=== PATIENT | female | born 1995 | race Caucasian/White ===

== ENCOUNTER 2018-04-29 08:30 | Emergency (ER) | payer OTHER ==
[~2018-04-29] VITALS: Ht 157.4 cm; Wt 58.1 kg
[2018-04-29] MEDS ORDERED: DIFLUCAN150 MG PO (09:18)
[2018-04-29] MEDS ORDERED: AMOXICILLIN500 M2 PO (09:18)
== END 2018-04-29 09:22 | disposition home or self-care (01) ==
LOC: ED 08:30
DX: R59.0 Localized enlarged lymph nodes (principal)

== ENCOUNTER 2018-05-04 13:45 | Emergency (ER) | payer OTHER ==
[~2018-05-04] VITALS: Ht 157.4 cm; Wt 54.4 kg
[~2018-05-04 13:45] MED LIST: AMOXICILLIN500 M2 PO; DIFLUCAN150 MG PO
[2018-05-04 14:29] LABS: BASO # 0.1 10*3/uL (0.0-0.1); BASO % 0.7 % (0.0-1.0); EOS # 0.2 10*3/uL (0.0-0.4); EOS % 2.1 % (1.0-4.0); HEMATOCRIT 30.8 % (37.0-47.0); HEMOGLOBIN 9.6 g/dl (12.0-16.0); LYMPH # 3.1 10*3/uL (1.3-4.4); LYMPH % 42.6 % (27.0-41.0); MEAN CELL VOLUME 72.8 fl (81.0-99.0); MEAN CORPUSCULAR HGB 22.7 pg (27.0-31.0); MEAN CORPUSCULAR HGB CONC 31.2 g/dl (33.0-37.0); MEAN PLATELET VOLUME 10.9 fl (9.6-12.3); MONO # 0.4 10*3/uL (0.1-1.0); MONO % 6.1 % (3.0-9.0); NEUT # 3.5 10*3/uL (2.3-7.9); NEUT % 48.2 % (47.0-73.0); PLATELET COUNT AUTOMATED 380 10*3/uL (130-400); RED BLOOD COUNT 4.23 10*6/uL (4.10-5.10); RED CELL DISTRI WIDTH 16.2 % (0-14.5); WHITE BLOOD COUNT 7.3 10*3/uL (4.8-10.8)
[2018-05-04 14:48] LABS: ALBUMIN 3.7 gm/dl (3.1-4.5); ALKALINE PHOSPHATASE 95 U/L (45-117); BUN 7 mg/dl (7-24); CHLORIDE 103 mmol/L (98-107); POTASSIUM 3.6 mmol/L (3.5-5.1); SGOT/AST 16 IU/L (3-35); SGPT/ALT 21 U/L (12-78); SODIUM 137 mmol/L (136-145)
[2018-05-04] MEDS ORDERED: VISTARIL25 MG PO (16:49)
[2018-05-04] MEDS ORDERED: IRON325 M1 PO (16:49)
== END 2018-05-04 17:02 | disposition home or self-care (01) ==
LOC: ED 13:45
PROVIDERS: Emergency Medicine
DX: D64.9 Anemia, unspecified (principal); F41.9 Anxiety disorder, unspecified; R06.02 Shortness of breath; R06.00 Dyspnea, unspecified; R53.83 Other fatigue

== ENCOUNTER 2018-06-05 08:59 | Emergency (ER) | payer OTHER ==
[~2018-06-05] VITALS: Ht 152.4 cm; Wt 58.1 kg
[~2018-06-05 08:59] MED LIST changes: +IRON325 M1 PO; +VISTARIL25 MG PO
[2018-06-05 09:44] LABS: BILIRUBIN NEGATIVE (NEGATIVE); BLOOD NEGATIVE (NEGATIVE); CLARITY CLEAR (CLEAR); COLOR YELLOW (YELLOW); GLUCOSE NEGATIVE (NEGATIVE); KETONE NEGATIVE (NEGATIVE); LEUKO ESTERASE NEGATIVE (NEGATIVE); NITRITE NEGATIVE (NEGATIVE); UROBILINOGEN 0.2 E.U./dl (0.2-1.0)
[2018-06-05 09:53] LABS: BACTERIA 1+; MUCOUS 2+
== END 2018-06-05 10:00 | disposition home or self-care (01) ==
LOC: ED 08:59
PROVIDERS: Nurse Practitioner
DX: Z32.02 Encounter for pregnancy test, result negative (principal); N94.10 Unspecified dyspareunia

== ENCOUNTER 2018-06-08 06:06 | Emergency (ER) | payer OTHER ==
[~2018-06-08] VITALS: Ht 152.4 cm; Wt 58.1 kg
[2018-06-08 06:48] LABS: BASO # 0.1 10*3/uL (0.0-0.1); BASO % 0.7 % (0.0-1.0); EOS # 0.1 10*3/uL (0.0-0.4); HEMATOCRIT 32.5 % (37.0-47.0); HEMOGLOBIN 10.4 g/dl (12.0-16.0); LYMPH # 2.8 10*3/uL (1.3-4.4); LYMPH % 39.1 % (27.0-41.0); MEAN CELL VOLUME 76.7 fl (81.0-99.0); MEAN CORPUSCULAR HGB 24.5 pg (27.0-31.0); MEAN PLATELET VOLUME 10.3 fl (9.6-12.3); MONO # 0.5 10*3/uL (0.1-1.0); MONO % 6.8 % (3.0-9.0); NEUT # 3.7 10*3/uL (2.3-7.9); NEUT % 51.3 % (47.0-73.0); PLATELET COUNT AUTOMATED 350 10*3/uL (130-400); RED BLOOD COUNT 4.24 10*6/uL (4.10-5.10); RED CELL DISTRI WIDTH 19.1 % (0-14.5); WHITE BLOOD COUNT 7.2 10*3/uL (4.8-10.8)
[2018-06-08 06:59] LABS: BUN 9 mg/dl (7-24); CHLORIDE 108 mmol/L (98-107); CREATININE 0.73 mg/dL (0.55-1.02); POTASSIUM 3.7 mmol/L (3.5-5.1); SODIUM 140 mmol/L (136-145)
[2018-06-08 07:05] LABS: BETA-HCG, QUANT < 1.0 mIU/mL (1-3)
[2018-06-08] MEDS ORDERED: BEYAZ 28 TABLE1 EACH PO (08:09)
== END 2018-06-08 08:16 | disposition home or self-care (01) ==
LOC: ED 06:06
PROVIDERS: Emergency Medicine Emergency Medical Services
DX: N92.0 Excessive and frequent menstruation with regular cycle (principal)

== ENCOUNTER 2024-09-07 23:11 | Emergency (ER) | payer OTHER ==
[~2024-09-07] VITALS: Ht 162.5 cm; Wt 72.6 kg
[~2024-09-07 23:11] MED LIST changes: +BEYAZ 28 TABLE1 EACH PO
[2024-09-08] MEDS ORDERED: AVPAK AZITHROM250 MG PO (00:33)
[2024-09-08] MEDS ORDERED: Dexamethasone Sodium Phospha 20 MG/5 ML VIAL IM ONE (00:40)
== END 2024-09-08 00:35 | disposition home or self-care (01) ==
LOC: ED 23:11
DX: J40 Bronchitis, not specified as acute or chronic (principal); Z20.822 Contact with and (suspected) exposure to COVID-19

== ENCOUNTER 2024-10-05 13:04 | Emergency (ER) | payer OTHER ==
[~2024-10-05] VITALS: Ht 162.5 cm; Wt 72.6 kg
[~2024-10-05 13:04] MED LIST changes: +AVPAK AZITHROM250 MG PO
[2024-10-05] MEDS ORDERED: ESCITALOPRAM OX20 MG PO (13:15)
[2024-10-05] MEDS ORDERED: OMEPRAZOLE MAGN20 MG PO (13:15)
[2024-10-05] MEDS ORDERED: JUNEL FE 1 MG-1 EACH PO (13:15)
[2024-10-05] MEDS ORDERED: MIRTAZAPINE15 M2 PO (13:15)
[2024-10-05] MEDS ORDERED: FEROSUL325 M1 PO (13:15)
[2024-10-05] MEDS ORDERED: IBUPROFEN 800 MG TAB PO ONE (13:25)
[2024-10-05 13:28] LABS: BILIRUBIN Negative (Negative); BLOOD 3+ (Negative); CLARITY Clear (Clear); COLOR Yellow (Yellow); GLUCOSE Negative (Negative); KETONE Trace (Negative); LEUKO ESTERASE Trace (Negative); NITRITE Negative (Negative); PH 5.5 (4.5-8.0); SPECIFIC GRAVITY >= 1.030 (1.001-1.030)
[2024-10-05 13:36] LABS: BACTERIA 1+; EPITHELIAL CELLS 0-2; RBC TNTC rbc/hpf (0-2)
[2024-10-05 13:37] LABS: MUCOUS 1+
== END 2024-10-05 14:11 | disposition home or self-care (01) ==
LOC: ED 13:04
PROVIDERS: Physician Assistant Medical
DX: N94.6 Dysmenorrhea, unspecified (principal)